=== PATIENT | male | born 1980 | race African-American/Black ===

== ENCOUNTER 2018-07-24 20:16 | Emergency (ER) | payer BC, MEDICAID ==
[~2018-07-24] VITALS: Ht 172.7 cm; Wt 80.0 kg
[2018-07-24 23:10] VITALS: BP 150/96
== END 2018-07-24 23:11 | disposition home or self-care (01) ==
LOC: ER 20:16
DX: R63.5 Abnormal weight gain (principal); R51 Headache; T42.6X5A Adverse effect of other antiepileptic and sedative-hypnotic drugs, initial encounter; Y92.091 Bathroom in other non-institutional residence as the place of occurrence of the external cause
CPT/HCPCS: 99283

== ENCOUNTER 2021-10-24 09:16 | Emergency (ER) | payer BC, MEDICAID ==
[~2021-10-24] VITALS: Ht 175.3 cm; Wt 86.0 kg
[2021-10-24 09:30] VITALS: BP 160/86
== END 2021-10-24 10:37 | disposition left against medical advice (07) ==
LOC: ER 09:29
DX: Z53.21 Procedure and treatment not carried out due to patient leaving prior to being seen by health care provider (principal)

== ENCOUNTER 2021-11-01 08:22 | Emergency (ER) | payer BC, MEDICAID ==
[~2021-11-01] VITALS: Ht 182.9 cm; Wt 93.0 kg
[2021-11-01 10:47] VITALS: BP 129/83
== END 2021-11-01 10:48 | disposition home or self-care (01) ==
LOC: ER 08:22
DX: R53.1 Weakness (principal); Z00.00 Encounter for general adult medical examination without abnormal findings; I10 Essential (primary) hypertension
CPT/HCPCS: 99283

== ENCOUNTER 2021-11-15 08:30 | Emergency (ER) | payer BC, MEDICAID ==
[~2021-11-15] VITALS: Ht 180.3 cm; Wt 87.0 kg
[2021-11-15 10:23] LABS: BASOPHILS % 0.6 % (0.0-2.0); EOSINOPHILS % 2.2 % (0.0-5.0); HEMATOCRIT. 35.8 % (42.0-52.0); HEMOGLOBIN. 11.5 g/dL (14.0-18.0); LYMPHOCYTES % 20.8 % (20.0-50.0); MEAN CORPUSCULAR HEMOGLOBIN 23.6 pg (28.0-32.0); MEAN CORPUSCULAR VOLUME 73.5 fL (80.0-94.0); MEAN PLATELET VOLUME 6.6 fl (7.4-10.4); MONOCYTES % 8.6 % (2.0-8.0); NEUTROPHILS % 67.8 % (40.0-76.0); PLATELET 281 x1000/uL (130-400); RED BLOOD CELL COUNT 4.86 mill/uL (4.7-6.1); RED CELL DISTRIBUTION WIDTH 14.6 % (11.6-14.6)
[2021-11-15 10:34] LABS: CHLORIDE 97 mEq/L (98-107)
[2021-11-15 11:54] VITALS: BP 150/94
== END 2021-11-15 11:55 | disposition home or self-care (01) ==
LOC: ER 08:47
DX: I10 Essential (primary) hypertension (principal); R07.89 Other chest pain; R42 Dizziness and giddiness
CPT/HCPCS: 36415; 71045; 80053; 84484; 85025; 93005; 99285

== ENCOUNTER 2022-01-03 05:57 | Emergency (ER) | payer BC, MEDICAID ==
[~2022-01-03] VITALS: Ht 177.8 cm; Wt 86.0 kg
[2022-01-03 05:59] VITALS: BP 138/74
[2022-01-03] MEDS ORDERED: LEVETIRACETAM 500MG PREMIX 100 ML IV ONE (06:45)
== END 2022-01-03 07:09 | disposition left against medical advice (07) ==
LOC: ER 06:06
DX: G40.909 Epilepsy, unspecified, not intractable, without status epilepticus (principal); I10 Essential (primary) hypertension; E78.00 Pure hypercholesterolemia, unspecified; Z86.59 Personal history of other mental and behavioral disorders
CPT/HCPCS: 99283

== ENCOUNTER 2022-01-18 05:58 | Emergency (ER) | payer BC, MEDICAID ==
[~2022-01-18] VITALS: Ht 180.3 cm; Wt 84.9 kg
[2022-01-18 06:17] VITALS: BP 150/93
== END 2022-01-18 09:16 | disposition home or self-care (01) ==
LOC: ER 05:58
DX: I10 Essential (primary) hypertension (principal)
CPT/HCPCS: 99281

== ENCOUNTER 2022-06-27 10:52 | Emergency (ER) | payer BC, MEDICAID ==
[~2022-06-27] VITALS: Ht 180.3 cm; Wt 83.0 kg
[2022-06-27] MEDS ORDERED: ONDANSETRON 4MG ODT PO STA (11:22)
[2022-06-27] MEDS ORDERED: VISCOUS LIDOCAINE 2% 15 ML UDC PO STA (11:22)
[2022-06-27] MEDS ORDERED: MAGNESIUM/ALUMINUM HYDROXIDE/SIMETHICONE 30ML UDC PO STA (11:22)
[2022-06-27] MEDS ORDERED: FAMOTIDINE 20MG TABLET PO ONE (11:30)
[2022-06-27 13:58] LABS: BASOPHILS % 0.4 % (0.0-2.0); EOSINOPHILS % 0.7 % (0.0-5.0); HEMATOCRIT. 39.4 % (42.0-52.0); HEMOGLOBIN. 12.5 g/dL (14.0-18.0); LYMPHOCYTES % 23.7 % (20.0-50.0); MEAN CORPUSCULAR HEMOGLOBIN 23.3 pg (28.0-32.0); MEAN CORPUSCULAR VOLUME 73.5 fL (80.0-94.0); MEAN PLATELET VOLUME 6.5 fl (7.4-10.4); MONOCYTES % 6.3 % (2.0-8.0); NEUTROPHILS % 68.9 % (40.0-76.0); PLATELET 296 x1000/uL (130-400); RED BLOOD CELL COUNT 5.36 mill/uL (4.7-6.1); RED CELL DISTRIBUTION WIDTH 13.7 % (11.6-14.6)
[2022-06-27 14:07] LABS: CLARITY URINE CLEAR (CLEAR); COLOR URINE YELLOW (YELLOW); KETONES URINE NEGATIVE (NEGATIVE); LEUKOCYTE ESTERASE URINE NEGATIVE (NEGATIVE); NITRITE URINE NEGATIVE (NEGATIVE); OCCULT BLOOD URINE 1+ (NEGATIVE); PROTEIN URINE NEGATIVE (NEGATIVE); SPECIFIC GRAVITY URINE 1.018 (1.005-1.030); UROBILINOGEN URINE 0.2 E.U./dL (0.2-1.0)
[2022-06-27 14:15] LABS: CHLORIDE 98 mEq/L (98-107)
[2022-06-27] MEDS ORDERED: KETOROLAC 15MG/ML VIAL IV ONE (15:00)
[2022-06-27] MEDS ORDERED: SODIUM CHLORIDE 0.9% 1,000 ML IV ONE (15:00)
[2022-06-27] MEDS ORDERED: LEVETIRACETAM 500MG TABLET PO ONE (16:30)
[2022-06-27 17:21] VITALS: BP 133/99
[2022-06-27] MEDS ORDERED: FAMO-135 MT (17:25)
[2022-06-27] MEDS ORDERED: MAG-55 MT (17:25)
== END 2022-06-27 17:44 | disposition home or self-care (01) ==
LOC: ER 12:42
DX: R10.11 Right upper quadrant pain (principal); R11.10 Vomiting, unspecified; E78.00 Pure hypercholesterolemia, unspecified; I10 Essential (primary) hypertension
CPT/HCPCS: 36415; 76705; 80053; 81003; 83690; 84484; 85025; 93005; 96361; 96374; 99291; J1885; Q0162

== ENCOUNTER 2023-01-13 10:00 | Emergency (ER) | payer BC, MEDICAID ==
[~2023-01-13] VITALS: Ht 177.8 cm; Wt 80.7 kg
[~2023-01-13 10:00] MED LIST: FAMO-135 MT; MAG-55 MT
[2023-01-13 10:14] VITALS: TEMP 98.5; O2SAT 100
[2023-01-13] MEDS ORDERED: TUSSL MT (11:18)
[2023-01-13 11:35] VITALS: BP 110/64; PULSE 78; RESP 20
== END 2023-01-13 11:36 | disposition home or self-care (01) ==
LOC: ER 10:00
DX: J06.9 Acute upper respiratory infection, unspecified (principal); I10 Essential (primary) hypertension; E78.00 Pure hypercholesterolemia, unspecified; Z86.59 Personal history of other mental and behavioral disorders
CPT/HCPCS: 71045; 99283

== ENCOUNTER 2023-02-07 16:10 | Emergency (ER) | payer BC, MEDICAID ==
[~2023-02-07] VITALS: Ht 180.3 cm; Wt 90.0 kg
[~2023-02-07 16:10] MED LIST changes: +TUSSL MT
[2023-02-07 16:31] VITALS: BP 127/87; PULSE 89; RESP 20; TEMP 98.3; O2SAT 100
[2023-02-07] MEDS ORDERED: FLUORESCEIN SODIUM 1MG/STRIP RIGHTEYE ONE (17:30)
[2023-02-07] MEDS ORDERED: TETRACAINE 0.5% OPHTH DROPS 4ML RIGHTEYE ONE (17:30)
== END 2023-02-07 18:18 | disposition home or self-care (01) ==
LOC: ER 16:10
DX: S01.111A Laceration without foreign body of right eyelid and periocular area, initial encounter (principal); E78.00 Pure hypercholesterolemia, unspecified; I10 Essential (primary) hypertension; H53.8 Other visual disturbances; H11.31 Conjunctival hemorrhage, right eye; W18.39XA Other fall on same level, initial encounter; Y93.89 Activity, other specified; Y92.89 Other specified places as the place of occurrence of the external cause; Y99.8 Other external cause status
CPT/HCPCS: 99282